=== PATIENT | female | born 1940 | race Two or more races ===

== ENCOUNTER 2020-09-12 11:09 | Emergency (ER) | payer OTHER ==
[~2020-09-12] VITALS: Ht 157.5 cm; Wt 69.4 kg
[~2020-09-12 11:09] MED LIST: ARICEPT10 MG PO; ATENOLOL50 MG PO; ATORVASTATIN CA80 MG PO; DERMACINRX5000 UNIT PO; ENALAPRIL MALEAT5 MG PO; GLIPIZIDE XL10 MG PO; JANUVIA50 MG PO; LANTUS SOL100 UNIT/1 SQ; PLAVIX75 MG PO; STOOL SOFTENER240 MG NGT; SYNTHROID137 MCG PO; TRAM1TAB98 PO; VASOFLEX FORTE1 EACH PO
[2020-09-12] MEDS ORDERED: ALENDRONATE SOD70 MG (11:51)
== END 2020-09-12 17:00 | disposition home or self-care (01) ==
LOC: ER 11:09
DX: N20.0 Calculus of kidney (principal); N39.0 Urinary tract infection, site not specified; B96.4 Proteus (mirabilis) (morganii) as the cause of diseases classified elsewhere; R31.0 Gross hematuria

== ENCOUNTER → 2020-09-16 09:14 | Outpatient (CLI) | payer OTHER ==
[~2020-09-16 09:14] MED LIST changes: +ALENDRONATE SOD70 MG
== END | disposition home or self-care (01) ==
LOC: LAB 09:14
PROVIDERS: ATTEND Surgery
DX: N20.1 Calculus of ureter (principal); D68.8 Other specified coagulation defects

== ENCOUNTER 2020-09-21 15:33 | Outpatient (CLI) | payer OTHER | END 2020-09-21 15:37 | disposition home or self-care (01) | LOC: TOM 15:33 | PROVIDERS: ATTEND Surgery | DX: N20.1 Calculus of ureter (principal) ==

== ENCOUNTER 2021-02-14 12:47 | Outpatient (CLI) | payer OTHER | END 2021-02-14 12:48 | disposition home or self-care (01) | LOC: NUCLEAR 12:47 | PROVIDERS: ATTEND Internal Medicine Endocrinology, Diabetes & Metabolism | DX: M81.0 Age-related osteoporosis without current pathological fracture (principal) ==

== ENCOUNTER 2021-03-24 09:21 | Outpatient (CLI) | payer OTHER | END 2021-03-24 09:23 | disposition home or self-care (01) | LOC: TOM 09:21 | PROVIDERS: ATTEND Internal Medicine Endocrinology, Diabetes & Metabolism | DX: R10.2 Pelvic and perineal pain (principal) ==

== ENCOUNTER 2021-04-06 09:27 | Outpatient (CLI) | payer OTHER | END 2021-04-06 09:29 | disposition home or self-care (01) | LOC: NUCLEAR 09:27 | PROVIDERS: ATTEND Internal Medicine Endocrinology, Diabetes & Metabolism | DX: M13.80 Other specified arthritis, unspecified site (principal) | CPT/HCPCS: 78306; A9503 ==